=== PATIENT | male | born 1950 | race Caucasian/White ===

== ENCOUNTER → 2018-06-03 | Outpatient (CLI) | payer MEDICARE ==
--- NOTE | 2018-06-03 09:51 | MR ---
EXAMINATION TYPE: MR knee LT wo con DATE OF EXAM: 06/03/2018 COMPARISON: None HISTORY: Left knee pain TECHNIQUE: Multiplanar, multisequence imaging of the left knee is performed without IV contrast. FINDINGS: MEDIAL MENISCUS: There is a tear involving the posterior horn extending into the body of the meniscus . LATERAL MENISCUS: Anterior and posterior horns are intact without tear. CRUCIATE LIGAMENTS: The anterior and posterior cruciate ligaments are intact and unremarkable. COLLATERAL LIGAMENTS: There is edema surrounding the medial collateral ligament. There is a partial t ear of the proximal fibers of the MCL. Lateral collateral ligament intact. EXTENSOR MECHANISM: Visualized quadriceps and patellar tendons are intact. EFFUSION: No significant suprapatellar joint effusion. POPLITEAL CYST: No popliteal/bean cyst. TRICOMPARTMENT SPACES: Joint spaces demonstrate mild narrowing the patellofemoral joint and medial co mpartment of the knee with no evidence of erosive change. BONE MARROW SIGNAL: No focal abnormal marrow signal is appreciated. IMPRESSION: Partial tear MCL with the posterior horn and body medial meniscal tear.
== END | disposition home or self-care (01) ==
LOC: RADMRIMAIN 08:21
PROVIDERS: ATTEND Orthopaedic Surgery
DX: S83.242A Other tear of medial meniscus, current injury, left knee, initial encounter (principal); S83.412A Sprain of medial collateral ligament of left knee, initial encounter

== ENCOUNTER → 2018-06-10 | Outpatient (CLI) | payer MEDICARE ==
[2018-06-10 11:32] LABS: Basophils % (A) 0 %; Eosinophils # (A) 0.2 k/uL (0-0.7); Eosinophils % (A) 3 %; HCT 42.8 % (39.0-53.0); Lymphocytes % (A) 33 %; MCH 30.8 pg (25.0-35.0); MCHC 32.8 g/dL (31.0-37.0); Mean Platelet Volume 8.2; Monocytes # (A) 0.5 k/uL (0-1.0); Monocytes % (A) 8 %; Neutrophils # (A) 3.3 k/uL (1.3-7.7); Neutrophils % (A) 54 %; Platelet Count 207 k/uL (150-450); RBC 4.55 m/uL (4.30-5.90); RDW 15.5 % (11.5-15.5); WBC 6.1 k/uL (3.8-10.6)
[2018-06-10 11:44] LABS: Potassium 5.4 mmol/L (3.5-5.1)
== END | disposition home or self-care (01) ==
LOC: LABPAT 08:56
PROVIDERS: ATTEND Orthopaedic Surgery
DX: Z01.818 Encounter for other preprocedural examination (principal); Z01.812 Encounter for preprocedural laboratory examination; M23.92 Unspecified internal derangement of left knee
CPT/HCPCS: 36415; 80051; 85025; 93005

== ENCOUNTER 2018-07-07 09:50 | Day surgery (SDC) | payer MEDICARE ==
[2018-07-05 11:22] VITALS: BMI 41.3
--- NOTE | 2018-07-06 13:58 | HP ---
HISTORY AND PHYSICAL DATE OF SURGERY: 07/07/2018 Rigoberto Jordan is a 68--year-old patient seen with progressive left knee pain. We discussed options with him. He elected to proceed with arthroscopy. Consent was obtained. PAST MEDICAL HISTORY: Hypertension, hyperlipidemia, hypothyroidism. PAST SURGICAL HISTORY: Noncontributory. DAILY MEDICATIONS: 1. Simvastatin. 2. Levothyroxine. 3. Lisinopril. 4. Metformin. 5. Triamterene/hydrochlorothiazide. ALLERGIES: None. SOCIAL HISTORY: Denies tobacco use. PHYSICAL EVALUATION OF THE LEFT KNEE: Range of motion is 0 to 130 degrees. Mild effusion. Tenderness medial joint line. Positive medial Kali's. Ligaments are stable. Hip rotation without pain. Distal neurovascular exam is intact. RADIOGRAPHS OF THE LEFT KNEE: Reveal some mild osteoarthritic changes of the left knee. MRI revealed medial meniscal tear. IMPRESSION: 1. Internal derangement, left knee medial meniscal tear. 2. Hypertension. 3. Hyperlipidemia. 4. Txj-flktmvk-dylkenymx diabetes. PLAN: Left knee arthroscopy with partial meniscectomy and debridement. MMODL / IJN: [id number] /
[~2018-07-07 09:50] MED LIST: DEXAMETHASONE SOD PHOSPHATE 10 MG/ML 1 ML VIAL IV ONE; LACTATED RINGERS 1,000 ML IV SCH; LIDOCAINE 1% 20 ML VIAL (10MG/ML) FOR IV START INTRADERMA PRN; MIDAZOLAM (PF) 2 MG/2 ML VIAL IV PRN; ONDANSETRON 4 MG/2 ML VIAL IVP ONE; SCOPOLAMINE 1.5MG/72HR PATCH TRANSDERM ONE; ceFAZolin 3 GM in SODIUM CHLORIDE 0.9% 100 ML IVPB ONE
[2018-07-07 10:34] LABS: Glucose,Whole Blood 145 mg/dL (75-99)
[2018-07-07] MEDS ORDERED: fentaNYL (PF) 50 MCG/ML 2 ML AMP ONE (11:47)
[2018-07-07] MEDS ORDERED: SUCCINYLCHOLINE CHLORIDE 100 MG/5 ML SYR IV ONE (11:47)
[2018-07-07] MEDS ORDERED: MIDAZOLAM 2 MG/2 ML VIAL ONE (11:47)
[2018-07-07] MEDS ORDERED: PROPOFOL 10 MG/ML 20 ML VIAL IV ONE (11:47)
[2018-07-07] MEDS ORDERED: LIDOCAINE 1% INJ 10MG/ML (20 ML MDV) ONE (11:47)
[2018-07-07] MEDS ORDERED: BUPIVACAIN-EPI 0.25%-1:200,000 30 ML VIAL INTRAARTIC ONE (12:13)
--- NOTE | 2018-07-07 12:47 | P.OP ---
Date of Procedure: 07/07/18 Preoperative Diagnosis: Internal derangement left knee Postoperative Diagnosis: 1. Tear medial meniscus left knee 2. Grade 2/3 chondromalacia medial femoral condyle left knee 3. Reactive synovitis medial, lateral and suprapatellar compartments left knee Procedure(s) Performed: 1. Arthroscopic partial medial meniscectomy left knee 2. Arthroscopic chondroplasty medial femoral condyle left knee 3. Arthroscopic partial synovectomy medial, lateral and suprapatellar compartments left knee Anesthesia: GETA, local Surgeon: Erasmo De León Estimated Blood Loss (ml): 5 Pathology: none sent Condition: stable Disposition: PACU Indications for Procedure: 68-year-old patient seen with progressive left knee pain. After having treatment options discussed, he elected to proceed with arthroscopy. Operative Findings: See description of procedure Description of Procedure: Patient was taken to the operative suite. Patient underwent a general anesthetic by the department of anesthesia. Patient was given preoperative antibiotics. The left lower extremity was placed in a well-padded arthroscopic leg khalil. The left leg was prepped and draped in the normal sterile orthopedic fashion. A lateral parapatellar and suprapatellar incision was made. Trochars were inserted. Arthroscopy was initiated. Suprapatellar pouch revealed diffuse thick reactive synovitis. The patellofemoral joint appeared to articulate congruently. There was grade 1/2 chondromalacia with no osteochondral tears present. The scope was guided into the medial gutter. No loose bodies or plica were identified The scope was then guided into the medial compartment. A medial parapatellar incision was made. Trocar inserted followed by probe. There was a complex tear involving the posterior horn medial meniscus. There were grade 2/3 chondromalacia changes of the medial femoral condyle with some osteochondral flap tears present. There was reactive synovitis anteriorly. I performed a partial medial meniscectomy down to stable tissue. I performed a chondroplasty of the medial femoral condyle down to stable tissue. I performed a partial synovectomy decompressing the reactive synovitis. The residual meniscus appeared stable. There was good stability about the residual osteochondral surface. There was good decompression of synovitis. The arthroscope and probe were then guided into the intercondylar notch. Cruciates were identified, probed and found to be stable The scope and probe were then guided into lateral compartment. the lateral meniscus appeared intact. There was no significant chondromalacia lateral compartment. There was reactive synovitis anteriorly. I performed a partial synovectomy decompressing the reactive synovitis. There was good decompression of synovitis.The scope was in guided back into the suprapatellar compartment. I introduced a motorized shaver into the super compartment. I debrided piecemeal fragments of meniscus I encountered. I performed a partial synovectomy decompressing the reactive synovitis. The shaver was removed. I took one more look on the entire knee, no residual debris. Instruments were now removed from the joint. The joint was infiltrated with .25% Marcaine. Steri-Strips were applied to the portal sites. Sterile dressings were applied. The patient was placed into a JAMAL hose. No tourniquet was utilized. The patient was awakened, transferred to a bed and taken to recovery stable satisfactory condition.
[2018-07-07 13:04] VITALS: TEMP 96.9
[2018-07-07 13:07] VITALS: RESP 16
[2018-07-07] MEDS: HYDROmorphone 0.5 MG/0.5 ML SYRINGE IVP PRN ×4 (13:17→13:44)
[2018-07-07] MEDS ORDERED: HYDROcodone/APAP 7.5-325MG 1 EACH TAB PO ONE (14:07)
[2018-07-07 14:27] VITALS: BP 124/70; PULSE 64
== END 2018-07-07 14:50 | disposition home or self-care (01) ==
LOC: OR 09:50
PROVIDERS: ATTEND Orthopaedic Surgery
DX: M23.322 Other meniscus derangements, posterior horn of medial meniscus, left knee (principal); M65.862 Other synovitis and tenosynovitis, left lower leg; M94.262 Chondromalacia, left knee; I10 Essential (primary) hypertension; E78.5 Hyperlipidemia, unspecified; E03.9 Hypothyroidism, unspecified; E66.01 Morbid (severe) obesity due to excess calories; E11.9 Type 2 diabetes mellitus without complications; G47.33 Obstructive sleep apnea (adult) (pediatric); Z79.84 Long term (current) use of oral hypoglycemic drugs; Z79.890 Hormone replacement therapy; Z79.899 Other long term (current) drug therapy; Z88.2 Allergy status to sulfonamides; Z79.82 Long term (current) use of aspirin; Z88.8 Allergy status to other drugs, medicaments and biological substances; Z68.41 Body mass index [BMI] 40.0-44.9, adult
CPT/HCPCS: 29881; 29876; 84132; J2250; J1100; J0690; J2405; J2001; J3010; J0330; J2704; J1170

== ENCOUNTER 2019-02-14 06:57 | Day surgery (SDC) | payer MEDICARE ==
[2019-02-08 16:01] VITALS: BMI 41.3
[~2019-02-14 06:57] MED LIST changes: -DEXAMETHASONE SOD PHOSPHATE 10 MG/ML 1 ML VIAL IV ONE; -MIDAZOLAM (PF) 2 MG/2 ML VIAL IV PRN; -ONDANSETRON 4 MG/2 ML VIAL IVP ONE; -SCOPOLAMINE 1.5MG/72HR PATCH TRANSDERM ONE; -ceFAZolin 3 GM in SODIUM CHLORIDE 0.9% 100 ML IVPB ONE
[2019-02-14] MEDS ORDERED: LACTATED RINGERS 1,000 ML IV ONE (07:10)
[2019-02-14 07:17] VITALS: TEMP 97.6
[2019-02-14 07:28] LABS: Glucose,Whole Blood 154 mg/dL (75-99)
[2019-02-14] MEDS ORDERED: PROPOFOL 10 MG/ML 20 ML VIAL IV ONE (07:47)
--- NOTE | 2019-02-14 07:50 | P.GSHP ---
History of Present Illness H&P Date: 02/14/19 Chief Complaint: Screening colonoscopy Is a 67-year-old male who presents today for screening colonoscopy. Patient denies a significant GI complaints.. Past Medical History Past Medical History: Diabetes Mellitus, Hyperlipidemia, Hypertension, Sleep Apnea/CPAP/BIPAP, Thyroid Disorder Additional Past Medical History / Comment(s): varicose vein, uses cpap History of Any Multi-Drug Resistant Organisms: None Reported Past Surgical History: Hernia Repair, Orthopedic Surgery Additional Past Surgical History / Comment(s): surgery for fx rt arm as child, maria e knee arthroscopy Past Anesthesia/Blood Transfusion Reactions: Previous Problems w/ Anesthesia Additional Past Anesthesia/Blood Transfusion Reaction / Comment(s): "hallucinations from ketamine after colonoscopy" Smoking Status: Never smoker - Past Family History Mother Family Medical History: Cancer Additional Family Medical History / Comment(s): lung-CA Medications and Allergies Home Medications Medication Instructions Recorded Confirmed Type Aspirin [Adult Low Dose Aspirin EC] 81 mg PO HS 07/05/18 02/14/19 History Cholecalciferol (Vitamin D3) 5,000 unit PO DAILY 07/05/18 02/14/19 History [Vitamin D3] Levothyroxine Sodium [Synthroid] 50 mcg PO QAM 07/05/18 02/14/19 History Lisinopril 20 mg PO QAM 07/05/18 02/14/19 History Pioglitazone [Actos] 30 mg PO DAILY 07/05/18 02/14/19 History Simvastatin [Zocor] 20 mg PO HS 07/05/18 02/14/19 History Triamterene-Hctz 37.5-25Mg 1 cap PO DAILY 07/05/18 02/14/19 History [Dyazide 37.5-25 Capsule] metFORMIN HCL 1,000 mg PO BID 07/05/18 02/14/19 History Fish Oil/Dha/Epa [Fish Oil 1,200 2,400 mg PO DAILY 02/08/19 02/14/19 History mg Fish Oil] Allergies Allergy/AdvReac Type Severity Reaction Status Date / Time ketamine Allergy Hallucinati Verified 02/14/19 07:17 ons Sulfa (Sulfonamide Allergy "turned Verified 02/14/19 07:17 Antibiotics) all red" Surgical - Exam Vital Signs Temp Pulse Resp BP Pulse Ox 97.6 F 78 14 126/63 97 02/14/19 07:15 02/14/19 07:15 02/14/19 07:15 02/14/19 07:15 02/14/19 07:15 - General well developed, well nourished, no distress - Eyes PERRL - ENT normal pinna - Neck no masses - Respiratory normal expansion - Cardiovascular Rhythm: regular - Abdomen Abdomen: soft, non tender Results - Labs Abnormal Lab Results - Last 24 Hours (Table) 02/14/19 Range/Units 07:18 POC Glucose (mg/dL) 154 H (75-99) mg/dL Assessment and Plan Assessment: We'll perform screening colonoscopy.
--- NOTE | 2019-02-14 08:00 | P.OP ---
Date of Procedure: 02/14/19 Preoperative Diagnosis: Screening colonoscopy Postoperative Diagnosis: Diverticulosis Procedure(s) Performed: Colonoscopy Anesthesia: MAC Surgeon: Carl Tello Pathology: none sent Condition: stable Disposition: PACU Description of Procedure: The patient's placed on the endoscopy table in the lateral position. He received IV sedation. Digital rectal exam was performed which revealed no other malice. The flexible colonoscope was then placed patient anus and passed throughout the entire colon. The ileocecal valve was visualized. The cecum, ascending and transverse colon appeared normal. In the descending; was mild diverticular changes. Scope was then brought back the rectum and this appeared normal. Scope was withdrawn for patient.
[2019-02-14 08:03] VITALS: RESP 16
[2019-02-14 08:28] VITALS: BP 125/63; PULSE 79
== END 2019-02-14 08:33 | disposition home or self-care (01) ==
LOC: ORWHC2ENDO 06:57
PROVIDERS: ATTEND Surgery
DX: Z12.11 Encounter for screening for malignant neoplasm of colon (principal); K57.30 Diverticulosis of large intestine without perforation or abscess without bleeding; E11.9 Type 2 diabetes mellitus without complications; E78.5 Hyperlipidemia, unspecified; I10 Essential (primary) hypertension; Z79.82 Long term (current) use of aspirin; Z88.2 Allergy status to sulfonamides; Z99.89 Dependence on other enabling machines and devices; Z79.890 Hormone replacement therapy; Z79.899 Other long term (current) drug therapy; Z79.84 Long term (current) use of oral hypoglycemic drugs
CPT/HCPCS: J2704; G0121

== ENCOUNTER 2019-05-11 14:35 | Inpatient (IN) | payer MEDICARE ==
--- NOTE | 2019-05-11 15:20 | ED ---
General Adult HPI - General Chief complaint: Syncope Stated complaint: Near syncope Time Seen by Provider: 05/11/19 14:54 Source: patient, family, EMS, RN notes reviewed Mode of arrival: EMS Limitations: no limitations - History of Present Illness Initial comments: Patient is a pleasant 6 he 9-year-old male presenting to the emergency department for near syncopal episode. Episode occurred less than an hour ago. Patient was sitting at table picking coffee and ate an apple when he felt very lightheaded. Patient also felt slightly nauseated and became diaphoretic. Patient got up wondering if he needs to use the restroom and fell to the ground. Patient did not lose consciousness. Patient did lose control of bowel and bladder. Patient did have tingling of his lips and bilateral hands. Patient is feeling much better at this time and is symptom-free. No history of similar symptoms previously. - Related Data Home Medications Medication Instructions Recorded Confirmed Aspirin [Adult Low Dose Aspirin EC] 81 mg PO HS 07/05/18 02/14/19 Cholecalciferol (Vitamin D3) 5,000 unit PO DAILY 07/05/18 02/14/19 [Vitamin D3] Levothyroxine Sodium [Synthroid] 50 mcg PO QAM 07/05/18 02/14/19 Lisinopril 20 mg PO QAM 07/05/18 02/14/19 Pioglitazone [Actos] 30 mg PO DAILY 07/05/18 02/14/19 Simvastatin [Zocor] 20 mg PO HS 07/05/18 02/14/19 Triamterene-Hctz 37.5-25Mg 1 cap PO DAILY 07/05/18 02/14/19 [Dyazide 37.5-25 Capsule] metFORMIN HCL 1,000 mg PO BID 07/05/18 02/14/19 Fish Oil/Dha/Epa [Fish Oil 1,200 2,400 mg PO DAILY 02/08/19 02/14/19 mg Fish Oil] Allergies Allergy/AdvReac Type Severity Reaction Status Date / Time ketamine Allergy Hallucinati Verified 02/14/19 07:17 ons Sulfa (Sulfonamide Allergy "turned Verified 02/14/19 07:17 Antibiotics) all red" Review of Systems ROS Statement: Those systems with pertinent positive or pertinent negative responses have been documented in the HPI. ROS Other: All systems not noted in ROS Statement are negative. Constitutional: Denies: fever Eyes: Denies: eye pain ENT: Denies: ear pain Respiratory: Denies: cough Cardiovascular: Denies: chest pain, palpitations Endocrine: Denies: fatigue Gastrointestinal: Denies: abdominal pain Genitourinary: Denies: dysuria Musculoskeletal: Denies: back pain Skin: Denies: rash Neurological: Denies: headache, weakness, confusion Past Medical History Past Medical History: Diabetes Mellitus, Hyperlipidemia, Hypertension, Sleep Apnea/CPAP/BIPAP, Thyroid Disorder Additional Past Medical History / Comment(s): varicose vein, uses cpap History of Any Multi-Drug Resistant Organisms: None Reported Past Surgical History: Hernia Repair, Orthopedic Surgery Additional Past Surgical History / Comment(s): surgery for fx rt arm as child, maria e knee arthroscopy Past Anesthesia/Blood Transfusion Reactions: Previous Problems w/ Anesthesia Additional Past Anesthesia/Blood Transfusion Reaction / Comment(s): "hallucinations from ketamine after colonoscopy" Past Psychological History: No Psychological Hx Reported Smoking Status: Never smoker Past Alcohol Use History: None Reported Past Drug Use History: None Reported - Past Family History Mother Family Medical History: Cancer Additional Family Medical History / Comment(s): lung-CA General Exam Limitations: no limitations General appearance: alert, in no apparent distress Head exam: Present: normocephalic Eye exam: Present: normal appearance, PERRL, EOMI ENT exam: Present: normal oropharynx Neck exam: Present: normal inspection Respiratory exam: Present: normal lung sounds bilaterally. Absent: chest wall tenderness Cardiovascular Exam: Present: regular rate, normal rhythm Expanded Peripheral pulses: 2+: Radial (R), Radial (L), Posterior Tibialis (R), Posterior Tibialis (L), Dorsalis Pedis (R), Dorsalis Pedis (L) GI/Abdominal exam: Present: soft. Absent: tenderness Extremities exam: Present: normal inspection. Absent: calf tenderness Neurological exam: Present: alert, oriented X3, CN II-XII intact. Absent: motor sensory deficit Expanded Neurological exam: Present: protecting the airway Patient oriented to: Present: person, place, time Speech: Present: fluid speech Cranial nerves: EOM's Intact: Normal Sensory exam: Upper Extremity Light Touch: Normal, Lower Extremity Light Touch: Normal Motor strength exam: RUE: 5, LUE: 5, RLE: 5, LLE: 5 Eye Response: (4) open spontaneously Motor Response: (6) obeys commands Verbal Response: (5) oriented Psychiatric exam: Present: normal affect, normal mood Skin exam: Present: normal color Course Vital Signs 05/11/19 14:36 Pulse Rate 69 Respiratory 17 Rate Blood Pressure 148/73 O2 Sat by Pulse 97 Oximetry EKG Findings - EKG Comments: EKG Findings:: Normal sinus rhythm 61. DC 194. QRS 142. QT 436. QTc 438. Left axis. Right bundle branch block. No acute ST change. Medical Decision Making - Medical Decision Making Patient reevaluated and resting comfortably in bed. Patient and family updated on results and plan. Case was discussed in detail with Dr. Ruggiero, covering for Dr. Church, who will admit. - Lab Data Result diagrams: 05/11/19 15:23 05/11/19 15:23 Lab Results 05/11/19 05/11/19 05/11/19 Range/Units 15:23 15:23 15:23 WBC 7.4 (3.8-10.6) k/uL RBC 4.70 (4.30-5.90) m/uL Hgb 14.2 (13.0-17.5) gm/dL Hct 42.8 (39.0-53.0) % MCV 91.1 (80.0-100.0) fL MCH 30.2 (25.0-35.0) pg MCHC 33.1 (31.0-37.0) g/dL RDW 14.8 (11.5-15.5) % Plt Count 249 (150-450) k/uL Neutrophils % 73 % Lymphocytes % 17 % Monocytes % 7 % Eosinophils % 2 % Basophils % 0 % Neutrophils # 5.4 (1.3-7.7) k/uL Lymphocytes # 1.3 (1.0-4.8) k/uL Monocytes # 0.5 (0-1.0) k/uL Eosinophils # 0.1 (0-0.7) k/uL Basophils # 0.0 (0-0.2) k/uL Poikilocytosis Slight PT 10.3 (9.0-12.0) sec INR 1.0 (<1.2) APTT 22.6 (22.0-30.0) sec Sodium (137-145) mmol/L Potassium (3.5-5.1) mmol/L Chloride (98-107) mmol/L Carbon Dioxide (22-30) mmol/L Anion Gap mmol/L BUN (9-20) mg/dL Creatinine (0.66-1.25) mg/dL Est GFR (CKD-EPI)AfAm (>60 ml/min/1.73 sqM) Est GFR (CKD-EPI)NonAf (>60 ml/min/1.73 sqM) Glucose (74-99) mg/dL Calcium (8.4-10.2) mg/dL Magnesium (1.6-2.3) mg/dL Total Bilirubin (0.2-1.3) mg/dL AST (17-59) U/L ALT (4-49) U/L Alkaline Phosphatase (38-126) U/L Troponin I (0.000-0.034) ng/mL Total Protein (6.3-8.2) g/dL Albumin (3.5-5.0) g/dL Urine Color Yellow Urine Appearance Clear (Clear) Urine pH 5.5 (5.0-8.0) Ur Specific [place] 1.011 (1.001-1.035) Urine Protein Negative (Negative) Urine Glucose (UA) Negative (Negative) Urine Ketones Negative (Negative) Urine Blood Negative (Negative) Urine Nitrite Negative (Negative) Urine Bilirubin Negative (Negative) Urine Urobilinogen <2.0 (<2.0) mg/dL Ur Leukocyte Esterase Negative (Negative) 05/11/19 05/11/19 Range/Units 15:23 15:23 WBC (3.8-10.6) k/uL RBC (4.30-5.90) m/uL Hgb (13.0-17.5) gm/dL Hct (39.0-53.0) % MCV (80.0-100.0) fL MCH (25.0-35.0) pg MCHC (31.0-37.0) g/dL RDW (11.5-15.5) % Plt Count (150-450) k/uL Neutrophils % % Lymphocytes % % Monocytes % % Eosinophils % % Basophils % % Neutrophils # (1.3-7.7) k/uL Lymphocytes # (1.0-4.8) k/uL Monocytes # (0-1.0) k/uL Eosinophils # (0-0.7) k/uL Basophils # (0-0.2) k/uL Poikilocytosis PT (9.0-12.0) sec INR (<1.2) APTT (22.0-30.0) sec Sodium 136 L (137-145) mmol/L Potassium 4.4 (3.5-5.1) mmol/L Chloride 102 (98-107) mmol/L Carbon Dioxide 25 (22-30) mmol/L Anion Gap 9 mmol/L BUN 24 H (9-20) mg/dL Creatinine 1.37 H (0.66-1.25) mg/dL Est GFR (CKD-EPI)AfAm 61 (>60 ml/min/1.73 sqM) Est GFR (CKD-EPI)NonAf 52 (>60 ml/min/1.73 sqM) Glucose 150 H (74-99) mg/dL Calcium 9.2 (8.4-10.2) mg/dL Magnesium 2.0 (1.6-2.3) mg/dL Total Bilirubin 0.7 (0.2-1.3) mg/dL AST 35 (17-59) U/L ALT 30 (4-49) U/L Alkaline Phosphatase 50 (38-126) U/L Troponin I <0.012 (0.000-0.034) ng/mL Total Protein 6.5 (6.3-8.2) g/dL Albumin 4.1 (3.5-5.0) g/dL Urine Color Urine Appearance (Clear) Urine pH (5.0-8.0) Ur Specific [place] (1.001-1.035) Urine Protein (Negative) Urine Glucose (UA) (Negative) Urine Ketones (Negative) Urine Blood (Negative) Urine Nitrite (Negative) Urine Bilirubin (Negative) Urine Urobilinogen (<2.0) mg/dL Ur Leukocyte Esterase (Negative) - Radiology Data Radiology results: image reviewed (Chest x-ray shows no acute process) Disposition Clinical Impression: Near syncope Disposition: ADMITTED IP TO THIS [facility] Is patient prescribed a controlled substance at d/c from ED?: No Referrals: Kathleen Wolf DO [Primary Care Provider] - 1-2 days Decision Time: 16:43
[2019-05-11 15:51] LABS: Appearance,Urine Clear (Clear); Basophils % (A) 0 %; Bilirubin,Urine Negative (Negative); Blood,Urine Negative (Negative); Color,Urine Yellow; Eosinophils # (A) 0.1 k/uL (0-0.7); Eosinophils % (A) 2 %; Glucose,Urine (UA) Negative (Negative); HCT 42.8 % (39.0-53.0); HGB 14.2 gm/dL (13.0-17.5); Ketones,Urine Negative (Negative); Leukocyte Esterase,Urine Negative (Negative); Lymphocytes # (A) 1.3 k/uL (1.0-4.8); Lymphocytes % (A) 17 %; MCH 30.2 pg (25.0-35.0); MCHC 33.1 g/dL (31.0-37.0); MCV 91.1 fL (80.0-100.0); Mean Platelet Volume 7.6; Monocytes # (A) 0.5 k/uL (0-1.0); Monocytes % (A) 7 %; Neutrophils # (A) 5.4 k/uL (1.3-7.7); Neutrophils % (A) 73 %; Nitrite,Urine Negative (Negative); PH, Urine 5.5 (5.0-8.0); Platelet Count 249 k/uL (150-450); Poikilocytosis Slight; Protein,Urine Negative (Negative); RDW 14.8 % (11.5-15.5); Specific Gravity,Urine 1.011 (1.001-1.035); Urobilinogen,Urine <2.0 mg/dL (<2.0); WBC 7.4 k/uL (3.8-10.6)
--- NOTE | 2019-05-11 15:57 | XR ---
EXAMINATION TYPE: XR chest 2V DATE OF EXAM: 05/11/2019 COMPARISON: NONE HISTORY: Syncope TECHNIQUE: Frontal and lateral views of the chest are obtained. FINDINGS: There is no focal air space opacity, pleural effusion, or pneumothorax seen. The cardiac silhouette size is enlarged. The osseous structures are intact. Mild multilevel degenerative change of the spine. IMPRESSION: No acute cardiopulmonary process.
[2019-05-11 16:05] LABS: Partial Thromboplastin Time 22.6 sec (22.0-30.0); Prothrombin Time 10.3 sec (9.0-12.0)
[2019-05-11 16:06] LABS: Albumin 4.1 g/dL (3.5-5.0); Calcium 9.2 mg/dL (8.4-10.2); Potassium 4.4 mmol/L (3.5-5.1); Total Bilirubin 0.7 mg/dL (0.2-1.3); Total Protein 6.5 g/dL (6.3-8.2)
[2019-05-11] MEDS ORDERED: NALOXONE 0.4 MG/ML 1 ML VIAL IV PRN (16:46)
[2019-05-11] MEDS: SODIUM CHLORIDE 0.9% 1,000 ML IV SCH (19:54)
[2019-05-11] MEDS ORDERED: ALPRAZolam 0.25 MG TAB PO PRN (20:55)
--- NOTE | 2019-05-11 21:04 | US ---
EXAMINATION TYPE: US carotid duplex BILAT DATE OF EXAM: 05/11/2019 COMPARISON: NONE CLINICAL HISTORY: near syncope; diabetic EXAM MEASUREMENTS: RIGHT: Peak Systolic Velocity (PSV) cm/sec ----- Right CCA: 80.9 ----- Right ICA: 115.7 ----- Right ECA: 122.1 ICA/CCA ratio: 1.4 RIGHT: End Diastole cm/sec ----- Right CCA: 87.5 ----- Right ICA: 92.7 ----- Right ECA: 110.6 LEFT: Peak Systolic Velocity (PSV) cm/sec ----- Left CCA: 6.2 ----- Left ICA: 92.7 ----- Left ECA: 110.6 ICA/CCA ratio: 1.1 LEFT: End Diastole cm/sec ----- Left CCA: 6.2 ----- Left ICA: 17.6 ----- Left ECA: 12.8 VERTEBRALS (direction of flow): Right Vertebral: Antegrade Left Vertebral: Antegrade Rhythm: Normal IMPRESSION: 1. No elevated velocities. 2. Mild intimal wall changes bilateral carotid bifurcations.
[2019-05-11] MEDS: HEPARIN SODIUM,PORCINE 5,000 UNIT/ML 1 ML VIAL SQ SCH (21:06)
[2019-05-12] MEDS: INSULIN ASPART (NovoLOG) 100 UNIT/ML VIAL SQ SCH ×5 (00:41→20:35)
--- NOTE | 2019-05-12 00:53 | HP ---
HISTORY AND PHYSICAL I am covering for Dr. Wolf. DATE OF SERVICE: 05/11/2019. CHIEF COMPLAINT: Syncope and near syncope. HISTORY OF PRESENT ILLNESS: This 69-year-old gentleman with a past medical history of multiple medical problems including diabetes, hypertension, hyperlipidemia, sleep apnea, hypothyroidism, hernia repair, being followed by Dr. Wolf in the outpatient setting was apparently sitting at the computer today. The patient felt dizzy. Patient felt feeling hot. The patient was sitting and drinking a coffee, but the patient became diaphoretic and patient sat down and almost passed out according to him and the patient came to [facility] and was admitted to the hospital for further evaluation and treatment. There is no actual loss of consciousness, no history of seizures. No headache, chest pain, palpitations at this time. PAST MEDICAL HISTORY: Diabetes, hyperlipidemia, hypertension, hypothyroidism, hernia repair. MEDICATION: Home medications are: 1. Metformin 1000 mg p.o. b.i.d. 2. Dyazide 1 p.o. daily. 3. Zocor 20 mg q.h.s. 5. Lisinopril 20 mg q.a.m. 6. Synthroid 50 mcg p.o. daily. 7. Fish oil 1 p.o. daily. 8. Vitamin D3 5000 daily. 9. Ecotrin 81 mg q.h.s. ALLERGIES: KETAMINE AND SULFA. FAMILY HISTORY: History of lung cancer in the family. SOCIAL HISTORY: No history of smoking. No history of alcohol intake. REVIEW OF SYSTEMS: ENT: No diminished vision. No diminished hearing. CARDIOVASCULAR: No angina or palpitations. RESPIRATORY: As mentioned earlier. GI no nausea or vomiting. no dysuria or hematuria. Nervous System as mentioned earlier. ALLERGY/IMMUNOLOGY: No asthma or hayfever. MUSCULOSKELETAL as mentioned earlier. HEMATOLOGY/ONCOLOGY: No anemia. ENDOCRINE: No history of diabetes or hypothyroidism. CONSTITUTIONAL: As mentioned earlier. DERMATOLOGY: Negative. RHEUMATOLOGY: Negative. PSYCHIATRIC: As mentioned earlier. PHYSICAL EXAMINATION: Alert and oriented times three. Pulse 63, blood pressure 130/60, respiration 18. Temperature 98.8, pulse ox 97% on room air. HEENT: Conjunctivae normal. Oral mucosa moist. NECK is no jugular venous distention. No carotid bruit. No lymph node enlargement CARDIOVASCULAR systems: S1, S2. RESPIRATION: Breath sounds diminished in the bases. No rhonchi. No crackles. ABDOMEN: Soft, obese, nontender. No mass palpable. LEGS: No edema. No swelling. NERVOUS SYSTEM: Higher function as mentioned earlier. Moves all four limbs. No focal motor or sensory deficits. Lymphatics: No lymph nodes palpable in the neck, axillae or groin. SKIN: No ulcer, rash or bleeding. JOINTS: No active deforming arthropathy. LABS: CBC within normal limits. INR is 1. Sodium 130, potassium 4.2. Creatinine is 1.37. ASSESSMENT: 1. Syncope for evaluation. Possible vasovagal, possibly secondary to dehydration. 2. Rule out orthostatic hypotension. 3. Hyponatremia. 4. Increased creatinine with possibly acute prerenal renal failure. 5. Diabetes mellitus type 2. 6. Hypertension. 7. Hyperlipidemia. 8. Sleep apnea on CPAP/BiPAP. 9. Hypothyroidism. 10.History of varicose veins. 11.Hernia surgery. 12.History of degenerative joint disease. 13.Obesity with body mass index of 42.1. 14.FULL CODE. RECOMMENDATIONS AND DISCUSSION: In this 69-year-old gentleman who presented with multiple medical issues, we will monitor the patient closely. Continue the current medications, management and symptomatic treatment. We will initiate a full neurovascular workup and consult Cardiology. Telemetry. Otherwise, I would also recommend D-dimer, if is positive, CT angio will be ordered. Prognosis guarded. Resume the home medications. Discussed with the patient, who understands and agrees. Further recommendations to follow. I would recommend to stop lisinopril and diuretics. Also monitor creatinine closely. Cautious IV hydration is also recommended. See orders for details. MMODL / IJN: [id number] / MTDD
[2019-05-12 04:44] LABS: Basophils % (A) 1 %; Eosinophils # (A) 0.1 k/uL (0-0.7); Eosinophils % (A) 2 %; HCT 39.5 % (39.0-53.0); HGB 13.4 gm/dL (13.0-17.5); Lymphocytes # (A) 2.1 k/uL (1.0-4.8); Lymphocytes % (A) 34 %; MCH 31.1 pg (25.0-35.0); MCHC 33.9 g/dL (31.0-37.0); MCV 91.7 fL (80.0-100.0); Mean Platelet Volume 7.6; Monocytes # (A) 0.5 k/uL (0-1.0); Monocytes % (A) 8 %; Neutrophils # (A) 3.2 k/uL (1.3-7.7); Neutrophils % (A) 54 %; Platelet Count 204 k/uL (150-450); Poikilocytosis Slight; RBC 4.31 m/uL (4.30-5.90); RDW 14.8 % (11.5-15.5)
[2019-05-12 06:19] LABS: Glucose,Whole Blood 127 mg/dL (75-99)
[2019-05-12] MEDS: SODIUM CHLORIDE 0.9% 1,000 ML IV SCH ×2 (06:21→20:32)
[2019-05-12] MEDS: PANTOPRAZOLE 40 MG TABLET PO SCH (06:22)
[2019-05-12] MEDS: HEPARIN SODIUM,PORCINE 5,000 UNIT/ML 1 ML VIAL SQ SCH ×2 (08:17→20:32)
[2019-05-12] MEDS ORDERED: NICOTINE 14MG/24HR PATCH TRANSDERM SCH (09:00)
--- NOTE | 2019-05-12 10:33 | ECHOF ---
Referral Reason:near syncope MEASUREMENTS -------- HEIGHT: 175.3 cm WEIGHT: 132.0 kg BP: 138/75 RVIDd: 3.6 cm (< 3.3) IVSd: 1.5 cm (0.6 - 1.1) LVIDd: 4.2 cm (3.9 - 5.3) LVPWd: 1.3 cm (0.6 - 1.1) IVSs: 2.1 cm LVIDs: 2.6 cm LVPWs: 1.9 cm LA Diam: 3.2 cm (2.7 - 3.8) Ao Diam: 3.5 cm (2.0 - 3.7) AV Cusp: 2.2 cm (1.5 - 2.6) MV EXCURSION: 19.089 mm (> 18.000) MV EF SLOPE: 72 mm/s (70 - 150) EPSS: 0.7 cm MV E Chivo: 1.18 m/s MV DecT: 185 ms MV A Chivo: 1.07 m/s MV E/A Ratio: 1.10 RAP: 5.00 mmHg RVSP: 22.99 mmHg TAPSE: 21.69 mm FINDINGS -------- Sinus rhythm. This was a technically good study. The left ventricular size is normal. There is moderate concentric left ventricular hypertrophy. O verall left ventricular systolic function is normal with, an EF between 60 - 65 %. The right ventricle is mildly enlarged. The left atrial size is normal. The right atrium is normal in size. Interatrial and interventricular septum intact. Aortic valve is trileaflet and is mildly thickened. Mild mitral annular calcification present. Mild tricuspid regurgitation present. Right ventricular systolic pressure is normal at < 35 mmHg. Trace/mild (physiologic) pulmonic regurgitation. The aortic root size is normal. Normal inferior vena cava with normal inspiratory collapse consistent with estimated right atrial pre ssure of 5 mmHg. There is no pericardial effusion. CONCLUSIONS -------- 1. Sinus rhythm. 2. This was a technically good study. 3. The left ventricular size is normal. 4. There is moderate concentric left ventricular hypertrophy. 5. Overall left ventricular systolic function is normal with, an EF between 60 - 65 %. 6. The right ventricle is mildly enlarged. 7. The left atrial size is normal. 8. The right atrium is normal in size. 9. Interatrial and interventricular septum intact. 10. Aortic valve is trileaflet and is mildly thickened. 11. Mild mitral annular calcification present. 12. Mild tricuspid regurgitation present. 13. Right ventricular systolic pressure is normal at < 35 mmHg. 14. Trace/mild (physiologic) pulmonic regurgitation. 15. The aortic root size is normal. 16. Normal inferior vena cava with normal inspiratory collapse consistent with estimated right atrial pressure of 5 mmHg. 17. There is no pericardial effusion. [employer] SUPERVISOR: Елена Carrillo RDCS
--- NOTE | 2019-05-12 11:24 | P.CRDCN ---
History of Present Illness Consult date: 05/12/19 Requesting physician: Marvin Ruggiero Reason for Consult (text): near syncope Chief complaint: near syncope History of present illness: This a pleasant 69-year-old gentleman with a past medical history of hypertension, hyperlipidemia, diabetes, and obstructive sleep apnea. He is a nonsmoker, rarely drinks alcohol and drinks about 2 cups of coffee daily. Presented to the emergency department after having a near syncopal episode at home. According to the patient he was sitting at his computer drinking coffee and eating an apple at which time he became very hot and began sweating. He got up from the computer and began to walk at which time he fell to his knees, did not lose consciousness but did lose control of his bowel and bladder. According to the patient his witnessed this event and said his face became very red. He felt better within about 30 minutes at which time EMS arrived. This morning he is feeling well. He denies any complaints of chest discomfort, shortness of breath, palpitations, further dizziness or lightheadedness, edema, orthopnea or PND. He verbalizes using his CPAP regularly. Chest x-ray on admission showed no acute cardiopulmonary process. EKG showed sinus rhythm with a right bundle branch block. Carotid duplex study showed no elevated velocities, minimal intimal wall changes bilateral carotid bifurcations. Laboratory values on admission show normal CBC, potassium 4.4, sodium 136, BUN 24, creatinine 1.37, magnesium 2.0 normal LFTs and troponins negative 3. Repeat labs this morning showed a BUN of 25 and creatinine 1.46 after receiving IV hydration. Urinalysis is normal. Vital signs are stable with no significant tachycardia or wil ycardia episodes and no evidence of orthostatic hypotension. Past Medical History Past Medical History: Diabetes Mellitus, Hyperlipidemia, Hypertension, Sleep Apnea/CPAP/BIPAP, Thyroid Disorder Additional Past Medical History / Comment(s): varicose vein, uses cpap History of Any Multi-Drug Resistant Organisms: None Reported Past Surgical History: Hernia Repair, Orthopedic Surgery Additional Past Surgical History / Comment(s): surgery for fx rt arm as child, maria e knee arthroscopy Past Anesthesia/Blood Transfusion Reactions: Previous Problems w/ Anesthesia Additional Past Anesthesia/Blood Transfusion Reaction / Comment(s): "hallucinations from ketamine after colonoscopy" Past Psychological History: No Psychological Hx Reported Smoking Status: Never smoker Past Alcohol Use History: None Reported Past Drug Use History: None Reported - Past Family History Mother Family Medical History: Cancer Additional Family Medical History / Comment(s): lung-CA Medications and Allergies Home Medications Medication Instructions Recorded Confirmed Type Levothyroxine Sodium [Synthroid] 50 mcg PO DAILY 07/05/18 05/11/19 History Lisinopril 20 mg PO DAILY 07/05/18 05/11/19 History Pioglitazone [Actos] 30 mg PO DAILY 07/05/18 05/11/19 History Simvastatin [Zocor] 20 mg PO HS 07/05/18 05/11/19 History Triamterene-Hctz 37.5-25Mg 1 cap PO DAILY 07/05/18 05/11/19 History [Dyazide 37.5-25 Capsule] metFORMIN HCL 1,000 mg PO BID 07/05/18 05/11/19 History Allergies Allergy/AdvReac Type Severity Reaction Status Date / Time ketamine Allergy Hallucinati Verified 05/11/19 22:53 ons Sulfa (Sulfonamide Allergy "turned Verified 05/11/19 22:53 Antibiotics) all red" Physical Exam Vitals: Vital Signs Temp Pulse Pulse Pulse Pulse Resp BP 05/12/19 08:00 97.5 F L 64 64 63 19 05/12/19 03:02 98 F 55 L 18 05/11/19 21:32 64 68 64 18 05/11/19 20:00 98.6 F 64 16 05/11/19 19:52 98.8 F 63 18 130/68 05/11/19 18:37 58 L 17 122/70 05/11/19 17:17 97.9 F 64 18 05/11/19 14:36 69 17 148/73 BP BP BP Pulse Ox 05/12/19 08:00 141/67 150/72 124/58 94 L 05/12/19 03:02 138/75 97 05/11/19 21:32 134/69 145/73 131/69 98 05/11/19 20:00 95 05/11/19 19:52 97 05/11/19 18:37 97 05/11/19 17:17 159/78 96 05/11/19 14:36 97 Intake and Output 05/11/19 05/12/19 05/12/19 22:59 06:59 14:59 Intake Total 0 Balance 0 Intake: Oral 0 Other: Voiding Method Toilet # Voids 1 Weight 129.274 kg 132.2 kg PHYSICAL EXAMINATION: HEENT: Head is atraumatic, normocephalic. Pupils equal, round. Neck is supple. There is no elevated jugular venous pressure. HEART EXAMINATION: Heart sounds regular, S1 and S2 normal. No murmur or gallop heard. CHEST EXAMINATION: Lungs are clear to auscultation and precussion. No chest wall tenderness is noted on palpation or with deep breathing. ABDOMEN: Obese, firm, nontender. Bowel sounds are heard. No organomegaly noted. EXTREMITIES: 2+ peripheral pulses with evidence of 1+ pitting peripheral edema and no calf tenderness noted. NEUROLOGIC patient is awake, alert and oriented x3. . Results 05/12/19 04:15 05/12/19 04:15 Cardiac Enzymes 05/11/19 05/11/19 05/11/19 Range/Units 15:23 15:23 21:38 AST 35 (17-59) U/L Troponin I <0.012 <0.012 (0.000-0.034) ng/mL 05/12/19 Range/Units 04:15 AST (17-59) U/L Troponin I <0.012 (0.000-0.034) ng/mL Coagulation 05/11/19 Range/Units 15:23 PT 10.3 (9.0-12.0) sec APTT 22.6 (22.0-30.0) sec CBC 05/11/19 05/12/19 Range/Units 15:23 04:15 WBC 7.4 6.0 (3.8-10.6) k/uL RBC 4.70 4.31 (4.30-5.90) m/uL Hgb 14.2 13.4 (13.0-17.5) gm/dL Hct 42.8 39.5 (39.0-53.0) % Plt Count 249 204 (150-450) k/uL Comprehensive Metabolic Panel 05/11/19 05/12/19 Range/Units 15:23 04:15 Sodium 136 L 136 L (137-145) mmol/L Potassium 4.4 4.0 (3.5-5.1) mmol/L Chloride 102 104 (98-107) mmol/L Carbon Dioxide 25 23 (22-30) mmol/L BUN 24 H 25 H (9-20) mg/dL Creatinine 1.37 H 1.46 H (0.66-1.25) mg/dL Glucose 150 H 115 H (74-99) mg/dL Calcium 9.2 9.0 (8.4-10.2) mg/dL AST 35 (17-59) U/L ALT 30 (4-49) U/L Alkaline Phosphatase 50 (38-126) U/L Total Protein 6.5 (6.3-8.2) g/dL Albumin 4.1 (3.5-5.0) g/dL Current Medications Generic Name Dose Route Start Last Admin Trade Name Freq PRN Reason Stop Dose Admin Alprazolam 0.25 mg 05/11/19 20:55 Xanax PO TID PRN Anxiety Heparin Sodium (Porcine) 5,000 unit 05/11/19 21:00 05/12/19 08:17 Heparin SQ 5,000 unit Q12HR GILMA Administration Sodium Chloride 1,000 mls @ 75 mls/hr 05/11/19 17:00 05/12/19 06:21 Saline 0.9% IV 75 mls/hr .[id number] GILMA Administration Insulin Aspart 0 unit 05/11/19 21:00 05/12/19 06:19 Novolog SQ Not Given ACHS GILMA Protocol Naloxone HCl 0.2 mg 05/11/19 16:46 Narcan IV Q2M PRN Opioid Reversal Pantoprazole Sodium 40 mg 05/12/19 07:30 05/12/19 06:22 Protonix PO 40 mg [id number] GILMA Administration Intake and Output 05/11/19 05/12/19 05/12/19 22:59 06:59 14:59 Intake Total 0 Balance 0 Intake: Oral 0 Other: Voiding Method Toilet # Voids 1 Weight 129.274 kg 132.2 kg 05/12/19 04:15 05/12/19 04:15 EKG Interpretations (text) Sinus rhythm with a right bundle branch block Assessment and Plan Assessment: #1 near syncope with loss of bowel and bladder control #2 hypertension #3 hyperlipidemia #4 diabetes mellitus type 2 #5 obstructive sleep apnea #6 obesity #7 renal failure Plan: From cafeteria aide perspective, we'll obtain a 2-D echo with Doppler to assess cardiac function and structure. We will obtain a d-dimer. The patient would benefit from neurological work-up. Occurrence of lose of bowel and bladder control is quite concerning. We will resume statin and lisinopril. Hold Dyazide at this time due to renal insufficiency. We will continue to follow the patient and provide further recommendations accordingly. SOFTWARE ENGINE[employer] note has been reviewed, I agree with a documented findings and plan of care. Patient was seen and examined.
[2019-05-12 12:17] LABS: Glucose,Whole Blood 130 mg/dL (75-99)
[2019-05-12 16:53] LABS: Glucose,Whole Blood 112 mg/dL (75-99)
--- NOTE | 2019-05-12 17:10 | NM ---
EXAMINATION TYPE: NM pul vent and perfuse DATE OF EXAM: 05/12/2019 COMPARISON: Chest x-ray 05/11/2019 HISTORY: Elevated d-dimer, syncope, cough and wheezing TECHNIQUE: Utilizing inhalation of 33 mCi Tc 99m DTPA aerosol and intravenous injection of 4.83 mCi of Tc 99m MAA, ventilation and perfusion images are acquired post injection in multiple projections. FINDINGS: Normal radiotracer distribution is noted in the lungs, perfusion images show more uniform uptake than ventilation images. There is no evidence of mismatched defects. IMPRESSION: Low probability for pulmonary embolus.
[2019-05-12 20:33] LABS: Glucose,Whole Blood 149 mg/dL (75-99)
[2019-05-12] MEDS ORDERED: ATORVASTATIN 10 MG TAB PO SCH (21:00)
--- NOTE | 2019-05-12 21:23 | P.CNNES ---
History of Present Illness Consult date: 05/12/19 Requesting physician: Marvin Ruggiero Reason for Consult: TIA History of Present Illness: Patient is a 69-year-old male with history of hypertension, diabetes, states that yesterday he was in usual state of health, when at around 1:30 PM, he wanted to have a snack. He got an apple, and a cup of coffee. He sat down at the computer table. When he ate the first wedge of the apple, he started feeling hot sensation in his body. As he ate the second wedge, it got worse, and he became really warm, started sweating. He got up,, thought he had to go to the bathroom, but by the time he reached the kitchen, he became lightheaded, and he dropped down to the knee, relieved at both ends. He also noticed some tingling in the fingertips of both hands and his lips were numb. He laid down on the floor for 10 minutes. Patient states that he never passed out. There was no vertigo, nausea vomiting. He did feel slightly dizzy, when he was in the kitchen. His notices that he was "extremely red". Patient's called the EMS. According to EMS flow sheet, when they arrived, patient was sitting on a chair, complaining of some weakness. patient's blood pressure was 160/68, pulse rate 80, respiration 14, saturation 98%. His blood glucose was 185. Patient denied any pain in his stroke scale was negative. He had urinated and difficulty to himself. By the time patient arrived to the ER, he was feeling completely normal. Patient's chest x-ray was normal. EKG showed normal sinus rhythm with right bundle-branch block. Carotid Doppler showed no elevated velocities. Mild intimal wall changes bilateral carotid bifurcations. Antegrade flow in both vertebral arteries. 2-D echo showed sinus rhythm, with moderate concentric LVH. EF is 60-65%. Right ventricle is mildly enlarged. Left atrial size is normal. Interatrial and interventricular septum intact. Patient had a VQ scan, which was low probability for pulmonary embolism. Patient's blood test shows BUN 25, creatinine 1.46, liver functions, normal. Troponin negative, UA negative. Patient denies any previous history of similar spells. He denies any tobacco or alcohol use. He has hypertension, diabetes for 15 years. He does take aspirin 81 mg daily. Review of Systems As above in detail. Otherwise completely unremarkable. Past Medical History Past Medical History: Diabetes Mellitus, Hyperlipidemia, Hypertension, Sleep Apnea/CPAP/BIPAP, Thyroid Disorder Additional Past Medical History / Comment(s): varicose vein, uses cpap History of Any Multi-Drug Resistant Organisms: None Reported Past Surgical History: Hernia Repair, Orthopedic Surgery Additional Past Surgical History / Comment(s): surgery for fx rt arm as child, maria e knee arthroscopy Past Anesthesia/Blood Transfusion Reactions: Previous Problems w/ Anesthesia Additional Past Anesthesia/Blood Transfusion Reaction / Comment(s): "hallucinations from ketamine after colonoscopy" Past Psychological History: No Psychological Hx Reported Smoking Status: Never smoker Past Alcohol Use History: None Reported Past Drug Use History: None Reported - Past Family History Mother Family Medical History: Cancer Additional Family Medical History / Comment(s): lung-CA Medications and Allergies Home Medications Medication Instructions Recorded Confirmed Type Levothyroxine Sodium [Synthroid] 50 mcg PO DAILY 07/05/18 05/11/19 History Lisinopril 20 mg PO DAILY 07/05/18 05/11/19 History Pioglitazone [Actos] 30 mg PO DAILY 07/05/18 05/11/19 History Simvastatin [Zocor] 20 mg PO HS 07/05/18 05/11/19 History Triamterene-Hctz 37.5-25Mg 1 cap PO DAILY 07/05/18 05/11/19 History [Dyazide 37.5-25 Capsule] metFORMIN HCL 1,000 mg PO BID 07/05/18 05/11/19 History Allergies Allergy/AdvReac Type Severity Reaction Status Date / Time ketamine Allergy Hallucinati Verified 05/11/19 22:53 ons Sulfa (Sulfonamide Allergy "turned Verified 05/11/19 22:53 Antibiotics) all red" Physical Examination - Vital Signs Vital Signs: Vital Signs Temp Pulse Pulse Pulse Resp BP BP 05/12/19 20:00 97.7 F 59 L 16 05/12/19 12:00 97.9 F 57 L 19 134/65 05/12/19 08:00 97.5 F L 64 64 63 19 141/67 150/72 05/12/19 03:02 98 F 55 L 18 138/75 05/11/19 21:32 64 68 64 18 134/69 145/73 BP Pulse Ox 05/12/19 20:00 124/65 97 05/12/19 12:00 96 05/12/19 08:00 124/58 94 L 05/12/19 03:02 97 05/11/19 21:32 131/69 98 Intake and Output 05/12/19 05/12/19 05/12/19 06:59 14:59 22:59 Intake Total 360 480 Balance 360 480 Intake: Oral 360 480 Other: Voiding Method Toilet # Voids 1 1 Weight 132.2 kg On examination patient is an elderly male, in no distress. Patient is alert and awake oriented to time place and person. Speech and language functions are normal. Attention and concentration fund of knowledge is adequate. On cranial nerve examination pupils are round and reactive to light, visual knight are full on confrontation, extraocular muscles are intact. Face is symmetric, tongue protrudes to the midline. Palatal elevation and sensation normal. On muscle strength testing there is no pronator drift and the strength is normal in arms and legs distally and proximally. Reflexes are 2+ and plantars downgoing. Sensory touch is equal. No ataxia for [id number] testing. Tone and bulk of muscles normal. There is no carotid bruit or murmur, peripheral pulses present. Abdomen soft nontender. Results - Laboratory Findings CBC and BMP: 05/12/19 04:15 05/12/19 04:15 Abnormal Lab Findings: Abnormal Labs 05/11/19 05/12/19 05/12/19 15:23 04:15 06:17 D-Dimer Sodium 136 L 136 L BUN 24 H 25 H Creatinine 1.37 H 1.46 H Glucose 150 H 115 H POC Glucose (mg/dL) 127 H 05/12/19 05/12/19 05/12/19 10:39 12:01 16:49 D-Dimer 1.08 H Sodium BUN Creatinine Glucose POC Glucose (mg/dL) 130 H 112 H 05/12/19 20:32 D-Dimer Sodium BUN Creatinine Glucose POC Glucose (mg/dL) 149 H Assessment and Plan Assessment: * 69-year-old male admitted with an episode of near syncope, associated with some warmth sensation, diaphoresis, perioral paresthesias, and tingling of the fingertips. Patient also lost control of bowels and bladder with the event. Patient denies loss of consciousness. The episode happened while patient was sitting at the computer in a relaxed state. Blood sugar was normal. Exact cause of this event is uncertain. Differential diagnosis is between vasovagal near-syncope, arrhythmia, TIA, less likely seizure. * Diabetes * Hypertension * Obesity * Mild renal insufficiency. Plan: * Neurologically, I will check computed tomography scan of the head, to rule out any intracranial process. * Cardiology also on board, addressing any potential cardiac cause of this event. * Continue aspirin 81 mg daily. * Aggressive control of vascular risk factors. * We will check hemoglobin A1c and fasting a.m. lipid panel.
--- NOTE | 2019-05-12 21:50 | PN ---
PROGRESS NOTE DATE OF SERVICE: 05/12/2019 This 69-year-old gentleman who was admitted with syncope, possibly vasovagal, had some dehydration also. The patient also had renal failure. D-dimer was elevated at 1.08 and a V/Q scan was done because of the renal failure which showed low probability of pulmonary embolism. Multiple consultants are following the patient closely. A 2D echo with Doppler read by Cardiology showed an ejection fraction about 60% to 65% and only mild valvular abnormalities. No chest pain. No palpitations. No fever. PHYSICAL EXAMINATION: Alert and oriented x3. Pulse 64, blood pressure 114/60. No orthostatic changes. Respiration 20, temperature 97.4, pulse ox 94% on room air. HEENT: Conjunctivae normal. NECK: No jugular venous distention. CARDIOVASCULAR SYSTEM: S1, S2 muffled. RESPIRATORY SYSTEM: Breath sounds diminished at the bases. No rhonchi. No crackles. ABDOMEN: Soft, non-tender. LEGS: No edema. No swelling. NERVOUS SYSTEM: No focal deficit. LABS: Labs at this time show CBC within normal limits. Creatinine 1.46. ASSESSMENT: 1. Syncope for evaluation; possibly vasovagal, possibly secondary to dehydration. Rule out neurological causes and TIA. 2. No orthostatic hypotension. 3. Hyponatremia. 4. Increased creatinine with possible acute prerenal acute renal failure with acute tubular necrosis. 5. Diabetes mellitus, type 2. 6. Hypertension. 7. Hyperlipidemia. 8. Sleep apnea, on CPAP, BiPAP. 9. Hypothyroidism. 10.History of varicose veins. 11.History of hernia surgery. 12.History of degenerative joint disease. 13.Obesity with body mass index of 42.1. 14.FULL CODE. RECOMMENDATIONS AND DISCUSSION: I recommend to continue current medications, continue with the monitoring, symptomatic treatment. The 2D echo with Doppler did not show acute changes. I have recommended neurology evaluation as well to rule out the possibility of TIA. Otherwise, continue to monitor. The prognosis is guarded because of multiple complex medical issues. Further recommendations to follow. MMODL / IJN: [id number] /
--- NOTE | 2019-05-12 23:11 | CT ---
EXAMINATION TYPE: CT brain wo con DATE OF EXAM: 05/12/2019 COMPARISON: None HISTORY: ams CT DLP: 1154.4 mGycm Automated exposure control for dose reduction was used. There is mild cerebral cortical atrophy. There is no mass effect nor midline shift. There is no sign of intracranial hemorrhage. The calvarium is intact. IMPRESSION: Mild atrophy. No acute intracranial abnormality.
[2019-05-13 06:08] LABS: Glucose,Whole Blood 115 mg/dL (75-99)
[2019-05-13] MEDS: INSULIN ASPART (NovoLOG) 100 UNIT/ML VIAL SQ SCH ×2 (06:08→12:36)
[2019-05-13] MEDS ORDERED: LEVOTHYROXINE 50 MCG TAB PO SCH (06:30)
[2019-05-13] MEDS: PANTOPRAZOLE 40 MG TABLET PO SCH (06:33)
[2019-05-13 08:10] LABS: Potassium 4.2 mmol/L (3.5-5.1)
[2019-05-13 08:40] LABS: Basophils % (A) 0 %; Eosinophils # (A) 0.1 k/uL (0-0.7); Eosinophils % (A) 3 %; HCT 41.6 % (39.0-53.0); HGB 13.8 gm/dL (13.0-17.5); Lymphocytes # (A) 1.7 k/uL (1.0-4.8); Lymphocytes % (A) 34 %; MCH 30.2 pg (25.0-35.0); MCHC 33.2 g/dL (31.0-37.0); MCV 91.1 fL (80.0-100.0); Mean Platelet Volume 8.4; Monocytes # (A) 0.4 k/uL (0-1.0); Monocytes % (A) 7 %; Neutrophils # (A) 2.7 k/uL (1.3-7.7); Neutrophils % (A) 54 %; Platelet Count 231 k/uL (150-450); Poikilocytosis Slight; RBC 4.56 m/uL (4.30-5.90)
[2019-05-13] MEDS: HEPARIN SODIUM,PORCINE 5,000 UNIT/ML 1 ML VIAL SQ SCH (08:57)
[2019-05-13] MEDS: SODIUM CHLORIDE 0.9% 1,000 ML IV SCH (08:57)
[2019-05-13] MEDS ORDERED: PIOGLITAZONE 30 MG TAB PO SCH (09:00)
[2019-05-13] MEDS ORDERED: LISINOPRIL 20 MG TAB PO SCH (09:00)
[2019-05-13 09:09] VITALS: TEMP 97.7
[2019-05-13 11:51] LABS: Glucose,Whole Blood 141 mg/dL (75-99)
[2019-05-13 13:12] VITALS: BP 130/66; PULSE 62; RESP 18
[2019-05-13 18:15] LABS: Hemoglobin A1C 6.9 % (4.0-6.0)
--- NOTE | 2019-05-13 23:07 | DS ---
DISCHARGE SUMMARY DATE OF SERVICE: 05/13/2019 FINAL DIAGNOSES: 1. Syncope possibly vasovagal, possibly related to dehydration. 2. Orthostatic hypotension. 3. Hyponatremia. 4. Increased creatinine with possible acute prerenal acute renal failure with acute tubular necrosis. 5. Diabetes type 2. 6. Hypertension. 7. Hyperlipidemia. 8. Sleep apnea on CPAP/BiPAP. 9. Hypothyroidism. 10.History of varicose veins. 11.History of hernia surgery. 12.History of degenerative joint disease. 13.Obesity with body mass of 42.6. 14.FULL CODE. DISCHARGE DISPOSITION: The patient will be discharged in stable condition with guarded prognosis. HISTORY OF PRESENT ILLNESS: This 69-year-old gentleman with a past medical history of multiple medical problems admitted with syncope. The patient evaluation including Neurology, cardiology evaluation negative at this time. Brain CT scan was repeated which showed mild atrophy. Cardiology recommended outpatient monitoring. V/Q scan is low probability. The patient improved significantly. On exam, vitals are stable. Cardio system: S1, S2. Abdomen soft. Nervous system: No focal deficits. Creatinine is stable at 1.3. DISCHARGE ADVICE AND MEDICATIONS: 1. Diet is cardiac diet. 2. Activity limited until followup. 3. Follow up with Dr. Wolf in 1-2 days. 4. Follow up with Cardiology and Neurology as recommended. DISCHARGE MEDICATIONS: 1. Actos 30 mg p.o. daily. 2. Triamterene hydrochlorothiazide 1 p.o. daily. 3. Lisinopril 20 mg daily. 4. Metformin 1000 mg b.i.d. 5. Synthroid 50 mcg. 6. Zocor 20 mg q.h.s. 7. MMODL / IJN: [id number] /
--- NOTE | 2019-05-14 11:43 | P.PN ---
Subjective Progress Note Date: 05/14/19 This a pleasant 69-year-old gentleman with a past medical history of hypertension, hyperlipidemia, diabetes, and obstructive sleep apnea. He is a nonsmoker, rarely drinks alcohol and drinks about 2 cups of coffee daily. Presented to the emergency department after having a near syncopal episode at home. According to the patient he was sitting at his computer drinking coffee and eating an apple at which time he became very hot and began sweating. He got up from the computer and began to walk at which time he fell to his knees, did not lose consciousness but did lose control of his bowel and bladder. According to the patient his witnessed this event and said his face became very red. He felt better within about 30 minutes at which time EMS arrived. This morning he is feeling well. He denies any complaints of chest discomfort, shortness of breath, palpitations, further dizziness or lightheadedness, edema, orthopnea or PND. He verbalizes using his CPAP regularly. Chest x-ray on admission showed no acute cardiopulmonary process. EKG showed sinus rhythm with a right bundle branch block. Carotid duplex study showed no elevated velocities, minimal intimal wall changes bilateral carotid bifurcations. Laboratory values on admission show normal CBC, potassium 4.4, sodium 136, BUN 24, creatinine 1.37, magnesium 2.0 normal LFTs and troponins negative 3. Repeat labs this morning showed a BUN of 25 and creatinine 1.46 after receiving IV hydration. Urinalysis is normal. Vital signs are stable with no significant tachycardia or bradycardia episodes and no evidence of orthostatic hypotension. 05/13/2019 Patient seen and examined this morning, CT of the brain did not reveal any acute findings. VQ scan low probability for PE. Echo showed a normal left ventricular systolic function. No evidence of any orthostatic hypotension or arrhythmias documented on the monitor. Today the patient feels well, no dizziness or lightheadedness. Blood pressure 130/60 with a heart rate of 60, 99% on room air. Echocardiogram with Doppler study revealed a normal left ventricular systolic function. Objective - Vital Signs Vital signs: Vital Signs Temp 97.7 F 05/13/19 08:10 Pulse 62 05/13/19 12:00 Resp 18 05/13/19 12:00 BP 130/66 05/13/19 12:00 Pulse Ox 99 05/13/19 12:00 Intake & Output 0305/14/19 05/14/19 18:59 06:59 18:59 Intake Total 900 Balance 900 Intake: Intake, IV Titration 420 Amount Sodium Chloride 0.9% 1, 420 000 ml @ 75 mls/hr IV . [id number] GILMA Rx#:[id number] Oral 480 Other: # Voids 1 - Exam PHYSICAL EXAMINATION: HEENT: Head is atraumatic, normocephalic. Pupils equal, round. Neck is supple. There is no elevated jugular venous pressure. HEART EXAMINATION: Heart sounds regular, S1 and S2 normal. No murmur or gallop heard. CHEST EXAMINATION: Lungs are clear to auscultation and precussion. No chest wall tenderness is noted on palpation or with deep breathing. ABDOMEN: Obese, firm, nontender. Bowel sounds are heard. No organomegaly noted. EXTREMITIES: 2+ peripheral pulses with evidence of 1+ pitting peripheral edema and no calf tenderness noted. NEUROLOGIC patient is awake, alert and oriented x3. . - Labs CBC & Chem 7: 05/13/19 07:13 05/13/19 07:13 Labs: Abnormal Lab Results - Last 24 Hours (Table) 05/13/19 05/13/19 Range/Units 07:13 11:24 POC Glucose (mg/dL) 141 H (75-99) mg/dL Hemoglobin A1c 6.9 H (4.0-6.0) % Assessment and Plan Plan: Assessment and plan #1 near syncope with loss of bowel and bladder control #2 hypertension #3 hyperlipidemia #4 diabetes mellitus type 2 #5 obstructive sleep apnea #6 obesity #7 renal failure Plan Patient has no evidence of any orthostatic hypotension, no arrhythmias noted on the monitor. LV function is normal. The V/Q scan does not suggest evidence of pulmonary embolism. From our perspective the patient should be able to be discharged home, we would recommend a 30 day event monitor on discharge and follow-up appointment in the office. DNP note has been reviewed, I agree with a documented findings and plan of care. Patient was seen and examined.
== END 2019-05-13 13:35 | disposition home or self-care (01) | DRG 640 ==
LOC: EC 14:35 → 3SCARD 16:46 → INTOOBSV 16:46 → OBSVTOIN 20:55 → 3SCARD 23:39
PROVIDERS: ADMIT Hospitalist; ATTEND Hospitalist
DX: E86.0 Dehydration (principal); N17.0 Acute kidney failure with tubular necrosis; Z68.41 Body mass index [BMI] 40.0-44.9, adult; E03.9 Hypothyroidism, unspecified; E11.9 Type 2 diabetes mellitus without complications; E66.9 Obesity, unspecified; E78.5 Hyperlipidemia, unspecified; E87.1 Hypo-osmolality and hyponatremia; G47.33 Obstructive sleep apnea (adult) (pediatric); I10 Essential (primary) hypertension; I45.10 Unspecified right bundle-branch block; I95.1 Orthostatic hypotension; Z79.82 Long term (current) use of aspirin; Z79.84 Long term (current) use of oral hypoglycemic drugs; Z79.890 Hormone replacement therapy; Z79.899 Other long term (current) drug therapy; M19.90 Unspecified osteoarthritis, unspecified site; R15.9 Full incontinence of feces; R32 Unspecified urinary incontinence; Z80.1 Family history of malignant neoplasm of trachea, bronchus and lung; Z99.89 Dependence on other enabling machines and devices
CPT/HCPCS: 36415; 70450; 71046; 78582; 80048; 80053; 80061; 81003; 83036; 83735; 84484; 85025; 85379; 85610; 85730; 93005; 93306; 93880; 96372; 99285

== ENCOUNTER → 2022-12-01 | Outpatient (CLI) | payer MEDICARE ==
--- NOTE | 2022-12-07 10:55 | MR ---
EXAMINATION TYPE: MR knee RT wo con DATE OF EXAM: 12/01/2022 COMPARISON: Outside radiograph 11/24/2022 HISTORY: 72-year-old male M25.561, right knee pain, injury 3 weeks ago. TECHNIQUE: Multiplanar, multisequence imaging of the right knee is performed without IV contrast. FINDINGS: The ACL, PCL, MCL appears intact. There is heterogeneity to the proximal fibers of the LCL with intrinsic fluid signal. Similar changes to the popliteus tendon. The iliotibial band and conjoined tendon insertions appear intact. There is some degenerative signal within the body of the lateral meniscus. Prominent inner margin truncation to the body of the medial meniscus along with a small undersurface oblique tear at the junction of the posterior horn and body. Tricompartmental degenerative spurring. There is an 8 mm posterior loose body with a moderate to larg e joint effusion. No sizable Fields's cyst. Mild superficial cartilage irregularity medial compartment. Overall lateral compartment articular cartilage is maintained. There is severe loss of articular cartilage along the lateral patellar and trochlear facets with bone -on-bone articulation and reactive subchondral marrow signal change. Slight lateral patellar translat ion. Mild to moderate irregular cartilage loss medial patellar facet. Extensor mechanism is intact though with some intermediate signal along the deep proximal patellar te ndon fibers suggesting mild proximal patellar tendinosis. There is prepatellar fluid measuring 4 mm thick along with generalized subcutaneous soft tissue swell ing. Normal popliteal artery anatomy. Mild generalized muscle atrophy. No suspicious bone marrow replacement. Mild muscular edema along the medial and lateral heads of the gastrocnemius. IMPRESSION: 1. Grade 2 sprain LCL proper especially along the proximal fibers. Additional moderate popliteus tend inosis. 2. Partial thickness radial tear involving the inner margin of the medial meniscal body. Additional o blique undersurface tear at the junction of the posterior horn and body of the medial meniscus. 3. There is severe osteoarthritic change along the lateral facets of the patellofemoral compartment w ith [id number] articulation and lateral patellar translation. 4. Moderate to large joint effusion with an 8 mm posterior loose body. 5. Mild prepatellar bursitis measuring 4 mm thick. Generalized soft tissue swelling. 6. Mild edema within the medial and lateral heads of the gastrocnemius could represent mild muscle st rains or could be reactive to altered biomechanics.
== END | disposition home or self-care (01) ==
LOC: RADMRIMAIN 10:59
PROVIDERS: ATTEND Orthopaedic Surgery
DX: M17.11 Unilateral primary osteoarthritis, right knee (principal); M25.461 Effusion, right knee; M70.41 Prepatellar bursitis, right knee; S83.241A Other tear of medial meniscus, current injury, right knee, initial encounter; S83.421A Sprain of lateral collateral ligament of right knee, initial encounter; X58.XXXA Exposure to other specified factors, initial encounter

== ENCOUNTER 2022-12-30 08:48 | Day surgery (SDC) | payer MEDICARE ==
--- NOTE | 2022-12-29 13:28 | HP ---
HISTORY AND PHYSICAL DATE OF SCHEDULED SURGERY: 12/30/2022. HISTORY OF PRESENT ILLNESS: Rigoberto Jordan is a 72-year-old gentleman seen with progressive right knee pain. After having treatment options discussed, he elected to proceed with right knee arthroscopy. Consent regarding the procedure was obtained. Medical clearance was provided by Dr. Kathleen Wolf's office. PAST MEDICAL HISTORY: Hypertension, hypothyroidism, hyperlipidemia, and [id number] diabetes. SURGICAL HISTORY: Noncontributory. DAILY MEDICATIONS: 1. Levothyroxine. 2. Lisinopril. 3. Triamterene/hydrochlorothiazide. 4. Metformin. 5. Simvastatin. ALLERGIES: He has an allergy to sulfa. SOCIAL HISTORY: Denies tobacco use. PHYSICAL EVALUATION OF THE RIGHT KNEE: Range of motion is -2/3 to 120 degrees. Mild effusion. Tenderness along the medial and lateral joint lines. Positive medial Kali's, positive lateral Kali's. Ligaments are stable. Hip rotation is without pain. Distal neurovascular exam is intact. RADIOGRAPHS: Right knee radiographs revealed moderate medial compartment osteoarthritis. MRI revealed medial meniscal tear, osteoarthritis, effusion and loose body. IMPRESSION: 1. Internal derangement of right knee with medial meniscal tear and loose body. 2. Hypertension. 3. Hyperlipidemia. 4. Efi-owyvllf-bivkturlx diabetes. 5. Gastroesophageal reflux disease. PLAN: Right knee arthroscopy with partial medial meniscectomy, removal of loose body and debridement. MMODL / IJN: [id number] /
[~2022-12-30 08:48] MED LIST changes: +HYDROmorphone 0.5 MG/0.5 ML SYRINGE IVP PRN; +LIDOCAINE 1% (10MG/ML) FOR IV START INTRADERMA PRN; -LIDOCAINE 1% 20 ML VIAL (10MG/ML) FOR IV START INTRADERMA PRN; +ONDANSETRON 4 MG/2 ML VIAL IVP ONE; +ceFAZolin 3 GM in SODIUM CHLORIDE 0.9% 100 ML IVPB PRN
[2022-12-30 09:22] LABS: Glucose,Whole Blood 123 mg/dL (70-110)
[2022-12-30] MEDS ORDERED: DEXAMETHASONE SOD PHOSPHATE 4 MG/ML 1 ML VIAL IVP ONE (09:26)
[2022-12-30] MEDS ORDERED: PROPOFOL 10 MG/ML 20 ML VIAL IV ONE (09:40)
[2022-12-30] MEDS ORDERED: LIDOCAINE 1% INJ 10MG/ML (20 ML MDV) ONE (09:40)
[2022-12-30] MEDS ORDERED: MIDAZOLAM 2 MG/2 ML VIAL ONE (09:40)
[2022-12-30] MEDS ORDERED: PHENYLEPHRINE-0.9% NACL SYG 1,000 MCG/10 ML SYRINGE ONE (09:40)
[2022-12-30] MEDS ORDERED: fentaNYL (PF) 50 MCG/ML 2 ML AMP ONE (09:40)
[2022-12-30] MEDS ORDERED: SUCCINYLCHOLINE CHLORIDE 200 MG/10 ML VIAL IV ONE (09:40)
[2022-12-30] MEDS ORDERED: BUPIVACAINE (PF) 0.25% 30 ML VIAL SQ ONE ×2 (09:53→10:18)
--- NOTE | 2022-12-30 10:33 | P.OP ---
Date of Procedure: 12/30/22 Preoperative Diagnosis: Internal derangement right knee Postoperative Diagnosis: 1. Tear medial and lateral meniscus right knee 2. Grade 3/4 chondromalacia medial femoral condyle right knee 3. 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 Reactive synovitis medial, lateral and suprapatellar compartments right knee Procedure(s) Performed: 1. Arthroscopic partial medial and lateral meniscectomy right knee 2. Arthroscopic microfracture medial femoral condyle right knee 3. Arthroscopic partial synovectomy medial, lateral and suprapatellar compartments right knee 4. Arthroscopic chondroplasty medial femoral condyle right knee Anesthesia: ORLIN, local Surgeon: Erasmo De León Estimated Blood Loss (ml): 5 Pathology: none sent Condition: stable Disposition: PACU Indications for Procedure: 72-year-old gentleman seen with progressive right knee pain. After having treatment options discussed, he elected to proceed with arthroscopy. Operative Findings: See description of procedure Description of Procedure: Patient was taken to the operative suite. Patient underwent a general anesthetic by the department of anesthesia. Patient was given preoperative antibiotics. The right lower extremity was placed in a well-padded arthroscopic leg khalil. The right leg was prepped and draped in the normal sterile orthopedic fashion. A lateral parapatellar and suprapatellar incision was made. Trochars were inserted. Arthroscopy was initiated. Suprapatellar pouch revealed diffuse thick reactive synovitis. The patellofemoral joint appeared to articulate congruently. There was grade 4 chondromalacia involving both the femoral sulcus and patella with large areas of exposed bone. The scope was guided into the medial gutter. No loose bodies or plica were identified. The scope was then guided into the medial compartment. A medial parapatellar incision was made. Trocar inserted followed by probe. There was a tear involving the posterior horn of the medial meniscus. There were grade 3 and 4 chondromalacia changes involving the medial femoral condyle with some osteochondral flap tears. There were grade 2/3 chondromalacia changes involving the medial tibial plateau. There was some thick reactive synovitis anteriorly. I performed a partial medial meniscectomy getting down to stable meniscal tissue. I performed a chondroplasty of the medial femoral condyle getting down to stable osteochondral tissue. I performed a partial synovectomy decompressing the reactive synovitis. I did note what area of exposed bone involving the medial femoral condyle. I introduced a microfracture awl and I performed a microfracture to the area of exposed bone medial femoral condyle penetrating the bone with resultant bleeding at the microfracture site. The residual meniscus was probed and was found to be stable. There was good decompression of the synovitis. The residual osteochondral surface was found to be stable. Scope and probe were then guided into the intercondylar notch. Cruciates were identified, probed and found to be stable. The scope and probe were then guided into lateral compartment. There was a radial tear involving the posterior horn lateral meniscus. There were grade 2 chondromalacia of both the lateral tibial plateau and lateral femoral condyle without tears. There was some thick reactive synovitis anteriorly. I performed a partial lateral meniscectomy getting down to stable meniscal tissue. I performed a partial synovectomy decompressing reactive synovitis. The residual meniscus and stable. There was good decompression of the synovitis. The scope was in guided back into the suprapatellar compartment. I introduced a motorized shaver into the suprapatellar compartment. I debrided some piecemeal fragments of meniscus I encountered. I performed a partial synovectomy. The shaver was now removed. There was good decompression of the synovitis. I took one more look around the entire knee, no residual debris. Instruments were now removed from the joint. The joint was infiltrated with .25% Marcaine. Steri-Strips were applied to the portal sites. Sterile dressings were applied. The patient was placed into a JAMAL hose. No tourniquet was utilized. The patient was awakened, transferred to a bed and taken to recovery stable satisfactory condition.
[2022-12-30 11:07] VITALS: TEMP 96.9
[2022-12-30 12:04] VITALS: BP 104/65; PULSE 62; RESP 20
== END 2022-12-30 12:00 | disposition home or self-care (01) ==
LOC: OR 08:48
PROVIDERS: ATTEND Orthopaedic Surgery
DX: S83.281A Other tear of lateral meniscus, current injury, right knee, initial encounter (principal); S83.241A Other tear of medial meniscus, current injury, right knee, initial encounter; M94.261 Chondromalacia, right knee; M65.861 Other synovitis and tenosynovitis, right lower leg; I10 Essential (primary) hypertension; E03.9 Hypothyroidism, unspecified; E78.5 Hyperlipidemia, unspecified; K21.9 Gastro-esophageal reflux disease without esophagitis; G47.33 Obstructive sleep apnea (adult) (pediatric); E11.9 Type 2 diabetes mellitus without complications; Z79.84 Long term (current) use of oral hypoglycemic drugs; Z88.2 Allergy status to sulfonamides; Z79.890 Hormone replacement therapy; Z88.4 Allergy status to anesthetic agent; Z79.899 Other long term (current) drug therapy
CPT/HCPCS: 29880; 29879; J2250; J0330; J1100; J0690; J2405; J2001; J3010; J2704; J2371; J0665

== ENCOUNTER 2023-05-27 07:13 | Day surgery (SDC) | payer MEDICARE ==
[2023-05-25 08:45] VITALS: BMI 42.8
[2023-05-27] MEDS: LACTATED RINGERS 1,000 ML IV SCH (07:39)
[2023-05-27 07:48] LABS: Glucose,Whole Blood 136 mg/dL (70-110)
[2023-05-27] MEDS ORDERED: LIDOCAINE 1% INJ 10MG/ML (20 ML MDV) ONE (07:50)
[2023-05-27] MEDS ORDERED: PROPOFOL 10 MG/ML 20 ML VIAL IV ONE (07:50)
--- NOTE | 2023-05-27 07:54 | P.GSHP ---
History of Present Illness H&P Date: 05/27/23 Chief Complaint: Screening colonoscopy This is a 73-year-old male presents today for screening colonoscopy patient denies a significant GI complaints. Past Medical History Past Medical History: Diabetes Mellitus, Hyperlipidemia, Hypertension, Sleep Apnea/CPAP/BIPAP, Thyroid Disorder, Vascular Disorder Additional Past Medical History / Comment(s): varicose vein, uses cpap History of Any Multi-Drug Resistant Organisms: None Reported Past Surgical History: Hernia Repair, Orthopedic Surgery Additional Past Surgical History / Comment(s): surgery for fx rt arm as child, maria e knee arthroscopy Past Anesthesia/Blood Transfusion Reactions: Previous Problems w/ Anesthesia, Family History of Problems w/ Anesthesia Additional Past Anesthesia/Blood Transfusion Reaction / Comment(s): "hallucinations from ketamine after colonoscopy". father took along time to wake up Smoking Status: Never smoker - Past Family History Mother Family Medical History: Cancer Additional Family Medical History / Comment(s): lung-CA Father Family Medical History: Congestive Heart Failure (CHF) Medications and Allergies Home Medications Medication Instructions Recorded Confirmed Type Levothyroxine Sodium [Synthroid] 50 mcg PO QAM 07/05/18 05/27/23 History Pioglitazone [Actos] 30 mg PO DAILY 07/05/18 05/27/23 History Triamterene-Hctz 37.5-25Mg 1 cap PO TUFR 07/05/18 05/27/23 History [Dyazide 37.5-25 Capsule] lisinopriL 40 mg PO QAM 07/05/18 05/27/23 History metFORMIN HCL [Glucophage] 500 mg PO BID 07/05/18 05/27/23 History Aspirin 81 mg PO DAILY 12/28/22 05/27/23 History Cholecalciferol (Vitamin D3) 50 mcg PO DAILY 12/28/22 05/27/23 History [Vitamin D3 (50 Mcg = 2000 Iu) Chew Tab] [place]-3/Dha/Epa/Fish Oil [Fish Oil 1 cap PO HS 12/28/22 05/27/23 History 1,000 mg Softgel] Repaglinide [Prandin] 1 mg PO BID 12/28/22 05/27/23 History tadalafiL [Cialis] 5 mg PO HS 12/28/22 05/27/23 History Rosuvastatin [Crestor] 20 mg PO DAILY 05/25/23 05/27/23 History Allergies Allergy/AdvReac Type Severity Reaction Status Date / Time ketamine Allergy Hallucinati Verified 05/27/23 07:37 ons Sulfa (Sulfonamide Allergy "turned Verified 05/27/23 07:37 Antibiotics) all red" Surgical - Exam Vital Signs Temp Pulse Resp BP Pulse Ox 97.8 F 96 18 103/65 96 05/27/23 07:35 05/27/23 07:35 05/27/23 07:35 05/27/23 07:35 05/27/23 07:35 - General well developed, well nourished, no distress - Eyes PERRL - ENT normal pinna - Neck no masses - Respiratory normal expansion - Cardiovascular Rhythm: regular - Abdomen Abdomen: soft - Rectum Rectum: normal sphincter tone - Integumentary no rash Results - Labs Abnormal Lab Results - Last 24 Hours (Table) 05/27/23 Range/Units 07:44 POC Glucose (mg/dL) 136 H (70-110) mg/dL
[2023-05-27 08:03] VITALS: TEMP 97.8
--- NOTE | 2023-05-27 08:04 | P.OP ---
Date of Procedure: 05/27/23 Preoperative Diagnosis: Screening colonoscopy Postoperative Diagnosis: Mild diverticulosis Internal and external hemorrhoids Procedure(s) Performed: Colonoscopy Anesthesia: MAC Surgeon: Carl Tello Pathology: none sent Condition: stable Disposition: PACU Description of Procedure: The patient's placed on the endoscopy table in the lateral position. He received IV sedation. Digital rectal exam was performed. This revealed internal and external hemorrhoids. The flexible colonoscope was then placed patient anus and passed throughout the entire colon. The ileocecal valve was visualized. The cecum, ascending and transverse colon appeared normal. In the descending; there is mild diverticular changes. The scope was then brought back the rectum and this appeared normal. Scope withdrawn to anus and internal and external hemorrhoids were noted.
[2023-05-27 08:41] VITALS: BP 98/61; PULSE 74; RESP 16
== END 2023-05-27 08:45 | disposition home or self-care (01) ==
LOC: ORWHC2ENDO 07:13
PROVIDERS: ATTEND Surgery
DX: Z12.11 Encounter for screening for malignant neoplasm of colon (principal); K57.30 Diverticulosis of large intestine without perforation or abscess without bleeding; K64.4 Residual hemorrhoidal skin tags; K64.8 Other hemorrhoids; I10 Essential (primary) hypertension; E78.5 Hyperlipidemia, unspecified; E11.9 Type 2 diabetes mellitus without complications; I73.9 Peripheral vascular disease, unspecified; E07.9 Disorder of thyroid, unspecified; G47.33 Obstructive sleep apnea (adult) (pediatric); Z98.890 Other specified postprocedural states; Z82.49 Family history of ischemic heart disease and other diseases of the circulatory system; Z79.890 Hormone replacement therapy; Z79.84 Long term (current) use of oral hypoglycemic drugs; Z88.2 Allergy status to sulfonamides; Z88.4 Allergy status to anesthetic agent; Z79.82 Long term (current) use of aspirin; Z79.899 Other long term (current) drug therapy
CPT/HCPCS: J2001; J2704; G0121